=== PATIENT | female | born 1980 | race Caucasian/White ===

== ENCOUNTER 2017-11-14 06:52 | Emergency (ER) | payer OTHER ==
[~2017-11-14] VITALS: Ht 170.2 cm; Wt 63.5 kg
[~2017-11-14 06:52] MED LIST: ACETAMINOPHEN325 M1 PO; COLACE 100 MG100 MG PO
[2017-11-14 08:23] LABS: BASOPHILS 0.3 %; MCHC 33.9 g/dL (28.0-37.0)
[2017-11-14 08:25] LABS: ABSOLUTE EOSINOPHILS 0.1 thou/uL (0.0-0.7); ABSOLUTE MONOCYTES 0.8 thou/uL (0.0-1.2); ABSOLUTE NEUTROPHILS 5.6 thou/uL (1.6-8.1); EOSINOPHILS 0.7 %; HEMATOCRIT 39.9 % (37.0-47.0); HEMOGLOBIN 13.5 gm/dL (12.0-15.0); LYMPHOCYTES 13.6 %; MCH 30.1 pg (26.0-34.0); MCV 88.9 fL (80.0-100.0); MONOCYTES 10.2 %; NUCLEATED RBCS 0 /100WBC; PLATELET COUNT* 188 thou/uL (150-400); POLYS 75.2 %; RBC 4.48 mil/uL (4.20-5.00); RDW-CV 12.5 % (10.5-14.5); WBC 7.4 thou/uL (4.0-11.0)
[2017-11-14 08:51] LABS: INFLUENZA A ANTIGEN None Detected (None Detect); INFLUENZA B ANTIGEN None Detected (None Detect)
[2017-11-14] MEDS ORDERED: PROMETHAZINE/C118 ML PO (09:28)
[2017-11-14 09:39] VITALS: BP 111/79
== END 2017-11-14 09:40 | disposition home or self-care (01) ==
LOC: M.ERS 06:52
PROVIDERS: Personal Emergency Response Attendant
DX: E86.0 Dehydration (principal); R09.89 Other specified symptoms and signs involving the circulatory and respiratory systems; R06.02 Shortness of breath